=== PATIENT | female | born 1960 | race African-American/Black ===

== ENCOUNTER 2021-12-01 13:56 | Observation (INO) | payer OTHER ==
[~2021-12-01] VITALS: Ht 167.6 cm; Wt 48.1 kg
[2021-12-01] MEDS ORDERED: SODIUM CHLORIDE 0.9% 1000ML 1,000 ML IV STA (14:06)
[2021-12-01] MEDS ORDERED: METHYLPREDNISOLONE SOD SUCC 125 MG/2ML VIAL IV STA (14:06)
[2021-12-01] MEDS ORDERED: ALBUTEROL/IPRATROPIUM 3 ML NEB NEB ONE (14:15)
[2021-12-01 14:58] LABS: BASOPHILS # (AUTO) 0.1 (0.0-0.1); BASOPHILS % 0.5 % (0.0-1.0); EOSINOPHILS # (AUTO) 0.2 (0.0-0.4); EOSINOPHILS % 1.7 % (0.0-6.0); HEMATOCRIT 39.4 % (34.2-44.1); LYMPHOCYTES % 10.8 % (18.0-39.1); MEAN CORPUSCULAR HEMOGLOBIN 33.2 pg (28-32); MEAN CORPUSCULAR VOLUME 100.5 fL (81-99); MONOCYTES # (AUTO) 0.8 (0.2-0.8); MONOCYTES % 8.6 % (4.4-11.3); NEUTROPHILS # (AUTO) 7.5 (2.1-6.9); NEUTROPHILS % 78.2 % (38.7-80.0); PLATELET COUNT 218 x10e3/uL (140-360); RED BLOOD COUNT 3.92 x10e6/uL (3.6-5.1); RED CELL DISTRIBUTION WIDTH 13.3 % (11.7-14.4)
[2021-12-01 15:08] LABS: INR 0.85; PROTHROMBIN TIME 12.4 seconds (11.9-14.5)
[2021-12-01 15:09] LABS: PARTIAL THROMBOPLASTIN TIME 27.2 seconds (23.8-35.5)
[2021-12-01 15:18] LABS: ALBUMIN 3.9 g/dL (3.5-5.0); ALBUMIN/GLOBULIN RATIO 0.9 (0.8-2.0); ANION GAP 15.7 mmol/L (8-16); CALCIUM 9.5 mg/dL (8.4-10.2); CREATININE, SERUM 1.58 mg/dL (0.57-1.11); POTASSIUM 4.7 mmol/L (3.5-5.1)
[2021-12-01 15:21] LABS: B-TYPE NATRIURETIC PEPTIDE2 20.3 pg/mL (0-100)
[2021-12-01 15:24] LABS: CREATINE KINASE MB 1.4 ng/mL (0-5.0)
[2021-12-01] MEDS ORDERED: SODIUM CHLORIDE 0.9% 50ML 50 ML ONE (15:40)
[2021-12-01] MEDS ORDERED: IOPAMIDOL 370 MG/ML 200 ML INFUS..BTL INJ ONE (15:40)
[2021-12-01] MEDS ORDERED: ASPIRIN 81 MG CHEW TAB PO ONE (17:45)
[2021-12-01 19:44] VITALS: BP 139/95
[2021-12-01 19:46] VITALS: BP 139/95
[2021-12-01] MEDS ORDERED: FLOMAX0.4 MG PO (20:39)
[2021-12-01] MEDS ORDERED: ASPIRIN EC81 MG PO (20:39)
[2021-12-01] MEDS ORDERED: METOPROLOL TART25 MG PO (20:39)
[2021-12-01] MEDS ORDERED: HYDROCHLOROTHIA25 MG PO (20:39)
[2021-12-01] MEDS: TAMSULOSIN HCL 0.4 MG CAP PO SCH (21:00)
[2021-12-01] MEDS: METOPROLOL TARTRATE 25 MG TAB PO SCH (21:00)
[2021-12-01] MEDS: SODIUM CHLORIDE 0.9% 1000ML 1,000 ML IV SCH (21:00)
[2021-12-01] MEDS: METHYLPREDNISOLONE SOD SUCC 125 MG/2ML VIAL IV SCH (22:41)
[2021-12-01] MEDS ORDERED: ACETAMINOPHEN 325 MG TAB PO PRN (23:45)
[2021-12-02] VITALS (8 sets, daily range): BP systolic 127–148; BP diastolic 78–82
[2021-12-02] MEDS: SODIUM CHLORIDE 0.9% 1000ML 1,000 ML IV SCH ×3 (01:45→19:00)
[2021-12-02] MEDS: METHYLPREDNISOLONE SOD SUCC 125 MG/2ML VIAL IV SCH (05:55)
[2021-12-02 06:11] LABS: HEMOGLOBIN 10.3 g/dL (12.0-16.0); LYMPHOCYTES # (AUTO) 0.7 (1.0-3.2); LYMPHOCYTES % 8.7 % (18.0-39.1); MEAN CORPUSCULAR HEMOGLOBIN 33.4 pg (28-32); MEAN CORPUSCULAR HGB CONC 33.2 g/dL (31-35); MEAN CORPUSCULAR VOLUME 100.6 fL (81-99); MONOCYTES # (AUTO) 0.3 (0.2-0.8); NEUTROPHILS # (AUTO) 7.3 (2.1-6.9); NEUTROPHILS % 87.8 % (38.7-80.0); PLATELET COUNT 197 x10e3/uL (140-360); RED BLOOD COUNT 3.08 x10e6/uL (3.6-5.1); RED CELL DISTRIBUTION WIDTH 13.1 % (11.7-14.4)
[2021-12-02 06:51] LABS: ANION GAP 12.1 mmol/L (8-16); CALCIUM 7.7 mg/dL (8.4-10.2); CREATININE, SERUM 1.31 mg/dL (0.57-1.11); POTASSIUM 4.1 mmol/L (3.5-5.1)
[2021-12-02 07:30] LABS: CLARITY,URINE CLOUDY (CLEAR); COLOR,URINE YELLOW (YELLOW)
[2021-12-02] MEDS: ALBUTEROL/IPRATROPIUM 3 ML NEB NEB SCH ×5 (07:30→23:00)
[2021-12-02 07:31] LABS: CREATINE KINASE MB 0.8 ng/mL (0-5.0)
[2021-12-02 07:31] LABS: KETONES,URINE NEGATIVE (NEGATIVE); LEUKOCYTE ESTERASE ,URINE SMALL (NEGATIVE); NITRITE,URINE NEGATIVE (NEGATIVE); PROTEIN,URINE DIPSTICK NEGATIVE (NEGATIVE); URINE UROBILINOGEN 0.2 mg/dL (0.2 - 1)
[2021-12-02 07:56] LABS: WBC,URINE (MAN) >50 /HPF (0-5)
[2021-12-02 07:57] LABS: BACTERIA,URINE FEW /HPF; EPITHELIAL CELLS,URINE RARE /LPF; RBC,URINE 0-5 /HPF (0-5)
[2021-12-02] MEDS: ASPIRIN 81 MG ENTERIC COATED PO SCH (08:29)
[2021-12-02] MEDS: HYDROCHLOROTHIAZIDE 25 MG TAB PO SCH (08:29)
[2021-12-02] MEDS: METOPROLOL TARTRATE 25 MG TAB PO SCH ×2 (08:30→21:51)
[2021-12-02 10:25] LABS: AMYLASE 69 U/L (25-125); LIPASE 36 U/L (8-78)
[2021-12-02 10:41] LABS: FREE THYROXINE INDEX 1.9396 (1.4-3.8); THYROID STIMULATING HORMONE 0.27 uIU/mL (0.350-4.940)
[2021-12-02] MEDS: CEFTRIAXONE 1 GM in SODIUM CHLORIDE 0.9% 50ML 50 ML IV SCH (11:00)
[2021-12-02] MEDS: LOSARTAN POTASSIUM 25 MG TAB PO SCH (14:15)
[2021-12-02 14:36] LABS: CREATINE KINASE 38 IU/L (29-168)
[2021-12-02] MEDS ORDERED: LISINOPRIL 2.5 MG TAB PO SCH (17:00)
[2021-12-02] MEDS ORDERED: HEPARIN SOD (PORCINE) 5,000 UNIT/ML VIAL SC SCH (21:00)
[2021-12-02] MEDS: TAMSULOSIN HCL 0.4 MG CAP PO SCH (21:50)
[2021-12-03] VITALS: BP 149/88
[2021-12-03] MEDS: SODIUM CHLORIDE 0.9% 1000ML 1,000 ML IV SCH (01:32)
[2021-12-03] MEDS: ALBUTEROL/IPRATROPIUM 3 ML NEB NEB SCH ×3 (03:00→10:54)
[2021-12-03 04:00] VITALS: BP 140/74
[2021-12-03] MEDS: HYDROCHLOROTHIAZIDE 25 MG TAB PO SCH (08:56)
[2021-12-03] MEDS: CEFTRIAXONE 1 GM in SODIUM CHLORIDE 0.9% 50ML 50 ML IV SCH (08:56)
[2021-12-03] MEDS: LOSARTAN POTASSIUM 25 MG TAB PO SCH (08:56)
[2021-12-03] MEDS: ASPIRIN 81 MG ENTERIC COATED PO SCH (08:56)
[2021-12-03 08:57] VITALS: BP 154/84
[2021-12-03] MEDS: METOPROLOL TARTRATE 25 MG TAB PO SCH (08:57)
[2021-12-03 09:00] VITALS: BP 154/84
== END 2021-12-03 12:34 | disposition home or self-care (01) ==
LOC: ER 14:05 → INTOOBSV 17:35 → ERHOLD 17:35 → MED/SURG3 19:44
DX: J44.1 Chronic obstructive pulmonary disease with (acute) exacerbation (principal); R09.02 Hypoxemia; N39.0 Urinary tract infection, site not specified; D53.9 Nutritional anemia, unspecified; N28.9 Disorder of kidney and ureter, unspecified; F17.210 Nicotine dependence, cigarettes, uncomplicated; Z88.8 Allergy status to other drugs, medicaments and biological substances; Z82.49 Family history of ischemic heart disease and other diseases of the circulatory system; E04.1 Nontoxic single thyroid nodule; F41.9 Anxiety disorder, unspecified; R33.9 Retention of urine, unspecified; Z20.822 Contact with and (suspected) exposure to COVID-19
CPT/HCPCS: 36415 ×2; 36600; 71045; 71260; 80048; 80053; 81001; 82150; 82550 ×2; 82553 ×2; 82607; 82746; 83090; 83605; 83690; 83880; 83921; 84436; 84443; 84479; 84484 ×2; 85025 ×2; 85379; 85610; 85730; 87040; 87086; 87186; 93005 ×2; 94640 ×2; 94799 ×2; 99284; G0378 ×3; J0696 ×2; J1644 ×2; J2930 ×2; J7030 ×3; Q9967; U0002

== ENCOUNTER 2022-06-16 00:37 | Inpatient (IN) | payer OTHER ==
[2022-06-16] VITALS (9 sets, daily range): BP systolic 124–158; BP diastolic 71–89
[~2022-06-16] VITALS: Ht 167.6 cm; Wt 49.0 kg
[~2022-06-16 00:37] MED LIST: ASPIRIN EC81 MG PO; FLOMAX0.4 MG PO; HYDROCHLOROTHIA25 MG PO; METOPROLOL TART25 MG PO
[2022-06-16] MEDS ORDERED: KETOROLAC TROMETHAMINE 30 MG/ML VIAL IV STA (00:50)
[2022-06-16 00:52] LABS: BASOPHILS # (AUTO) 0.1 (0.0-0.1); BASOPHILS % 0.5 % (0.0-1.0); EOSINOPHILS # (AUTO) 0.3 (0.0-0.4); EOSINOPHILS % 1.7 % (0.0-6.0); HEMATOCRIT 38.4 % (34.2-44.1); HEMOGLOBIN 12.7 g/dL (12.0-16.0); LYMPHOCYTES # (AUTO) 2.5 (1.0-3.2); LYMPHOCYTES % 13.4 % (18.0-39.1); MEAN CORPUSCULAR HEMOGLOBIN 32.8 pg (28-32); MEAN CORPUSCULAR HGB CONC 33.1 g/dL (31-35); MEAN CORPUSCULAR VOLUME 99.2 fL (81-99); MONOCYTES # (AUTO) 1.4 (0.2-0.8); MONOCYTES % 7.6 % (4.4-11.3); NEUTROPHILS # (AUTO) 14.2 (2.1-6.9); NEUTROPHILS % 76.5 % (38.7-80.0); PLATELET COUNT 259 x10e3/uL (140-360); RED BLOOD COUNT 3.87 x10e6/uL (3.6-5.1); RED CELL DISTRIBUTION WIDTH 13.4 % (11.7-14.4)
[2022-06-16 01:12] LABS: ALBUMIN 3.9 g/dL (3.5-5.0); ANION GAP 20.3 mmol/L (8-16); CREATININE, SERUM 1.33 mg/dL (0.57-1.11); POTASSIUM 3.3 mmol/L (3.5-5.1)
[2022-06-16] MEDS ORDERED: PIPERACILLIN/TAZOBACTAM 3.375 GM VIAL ONE (01:17)
[2022-06-16] MEDS ORDERED: SODIUM CHLORIDE 0.9% 1000ML 1,000 ML ONE (01:17)
[2022-06-16] MEDS ORDERED: SODIUM CHLORIDE 0.9% 1000ML 1,000 ML IV ONE (01:20)
[2022-06-16 01:25] LABS: CREATINE KINASE MB 1.1 ng/mL (0-5.0)
[2022-06-16] MEDS ORDERED: DEXTROSE 50% SYRINGE 50 ML IV ONE (01:45)
[2022-06-16 02:49] LABS: CLARITY,URINE CLOUDY (CLEAR); COLOR,URINE YELLOW (YELLOW); KETONES,URINE NEGATIVE (NEGATIVE); LEUKOCYTE ESTERASE ,URINE MODERATE (NEGATIVE); NITRITE,URINE POSITIVE (NEGATIVE); PROTEIN,URINE DIPSTICK >=300 (NEGATIVE); URINE UROBILINOGEN 0.2 mg/dL (0.2 - 1)
[2022-06-16 02:52] LABS: BACTERIA,URINE MODERATE /HPF; EPITHELIAL CELLS,URINE FEW /LPF; WBC,URINE (MAN) >50 /HPF (0-5)
[2022-06-16] MEDS ORDERED: Morphine 2mg Syringe 2 MG/ML SYR ONE (03:14)
[2022-06-16] MEDS ORDERED: Morphine 2mg Syringe 2 MG/ML SYR IV ONE ×2 (03:15)
[2022-06-16] MEDS: SODIUM CHLORIDE 0.9% 1000ML 1,000 ML IV SCH ×4 (03:30→20:49)
[2022-06-16] MEDS ORDERED: SODIUM CHLORIDE FLUSH 10 ML SYR INJ PRN (03:45)
[2022-06-16] MEDS ORDERED: ACETAMINOPHEN 325 MG TAB PO PRN (03:45)
[2022-06-16] MEDS ORDERED: IOPAMIDOL 370 MG/ML 100 ML INFUS..BTL INJ ONE (05:33)
[2022-06-16] MEDS ORDERED: LIPITOR20 MG PO (05:40)
[2022-06-16] MEDS ORDERED: LOSARTAN POTASS25 MG PO (05:41)
[2022-06-16] MEDS: ONDANSETRON HCL INJ 2MG/ML 2ML 2 MG/ML VIAL IV PRN ×2 (06:42→15:45)
[2022-06-16] MEDS: Morphine 4mg INJECTION 4 MG/ML INJ IV PRN ×2 (06:42→15:45)
[2022-06-16] MEDS ORDERED: ALBUTEROL/IPRATROPIUM 3 ML NEB NEB PRN (08:00)
[2022-06-16] MEDS: TAMSULOSIN HCL 0.4 MG CAP PO SCH (08:55)
[2022-06-16] MEDS: METOPROLOL TARTRATE 25 MG TAB PO SCH ×2 (08:57→20:48)
[2022-06-16] MEDS ORDERED: ENOXAPARIN SOD INJ 40 MG/0.4 ML SYR SC SCH (17:00)
[2022-06-16] MEDS ORDERED: ATORVASTATIN 20 MG TAB PO SCH (21:00)
[2022-06-17 05:22] VITALS: BP 156/98
[2022-06-17 06:02] LABS: BASOPHILS % 0.8 % (0.0-1.0); EOSINOPHILS # (AUTO) 0.3 (0.0-0.4); EOSINOPHILS % 6.5 % (0.0-6.0); HEMATOCRIT 29.8 % (34.2-44.1); HEMOGLOBIN 9.9 g/dL (12.0-16.0); LYMPHOCYTES # (AUTO) 1.8 (1.0-3.2); MEAN CORPUSCULAR HEMOGLOBIN 32.7 pg (28-32); MEAN CORPUSCULAR HGB CONC 33.2 g/dL (31-35); MEAN CORPUSCULAR VOLUME 98.3 fL (81-99); MONOCYTES # (AUTO) 0.7 (0.2-0.8); NEUTROPHILS # (AUTO) 2.4 (2.1-6.9); NEUTROPHILS % 45.5 % (38.7-80.0); PLATELET COUNT 183 x10e3/uL (140-360); RED BLOOD COUNT 3.03 x10e6/uL (3.6-5.1)
[2022-06-17 06:26] LABS: ALBUMIN 2.8 g/dL (3.5-5.0); ALBUMIN/GLOBULIN RATIO 1.1 (0.8-2.0); ANION GAP 14.6 mmol/L (8-16); CALCIUM 8.1 mg/dL (8.4-10.2); CREATININE, SERUM 1.04 mg/dL (0.57-1.11); POTASSIUM 3.6 mmol/L (3.5-5.1)
[2022-06-17 06:59] LABS: MAGNESIUM 1.7 MG/DL (1.3-2.1); PHOSPHORUS 2.9 MG/DL (2.3-4.7)
[2022-06-17 07:40] VITALS: BP 164/86
[2022-06-17 09:02] VITALS: BP 164/86
[2022-06-17] MEDS: METOPROLOL TARTRATE 25 MG TAB PO SCH (09:05)
[2022-06-17] MEDS: TAMSULOSIN HCL 0.4 MG CAP PO SCH (09:05)
[2022-06-17] MEDS ORDERED: CEPHALEXIN500 MG PO (09:41)
[2022-06-17 11:32] VITALS: BP 163/82
== END 2022-06-17 12:51 | disposition home or self-care (01) | DRG 872 ==
LOC: ER 00:45 → ERHOLD 03:40 → MED/SURG2 04:57
PROVIDERS: ADMIT Internal Medicine; ATTEND Internal Medicine
DX: A41.9 Sepsis, unspecified organism (principal); N13.6 Pyonephrosis; N12 Tubulo-interstitial nephritis, not specified as acute or chronic; Z68.1 Body mass index [BMI] 19.9 or less, adult; R65.20 Severe sepsis without septic shock; E87.6 Hypokalemia; J44.9 Chronic obstructive pulmonary disease, unspecified; R33.9 Retention of urine, unspecified; Z20.822 Contact with and (suspected) exposure to COVID-19
CPT/HCPCS: 36415; 74177; 80053; 81001; 82550; 82553; 82948; 83605; 83690; 83735; 84100; 84134; 84484; 85025; 87040; 93005; 94799; 99284; J0696; J1650; J1885; J2270; J2405; J2543; J7030; Q9967